=== PATIENT | female | born 1985 | race Two or more races ===

== ENCOUNTER 2017-09-11 07:31 | Emergency (ER) | payer BC ==
[~2017-09-11] VITALS: Ht 198.1 cm; Wt 74.8 kg
[2017-09-11 08:06] VITALS: BP 133/66
[2017-09-11] MEDS ORDERED: Ketorolac 30mg Inj IV ONE ×2 (08:15→09:45)
--- NOTE | 2017-09-11 08:30 | Emergency Room Report ---
History of Present Illness General Chief Complaint: Pain Source: Patient Present Illness HPI Patient presents with right facial numbness and also right arm numbness. This began on September 07. It's been intermittent. She was unable to come in at that time. Her sister who is a family practitioner felt that it might be cervical radiculopathy. She is under a lot of stress at this time with her job. She states the numbness in her face and side of her head is worse when she turns her head to the left. She also has some upper back pain that is positional - inside of her scapula. There is no weakness. She denies headache. No change in vision. The patient has a history of a skull fracture in the past. She doesn't remember having neck injury at that time. Last night she had cramps that were worse than usual. She doesn't believe she is at this time. She took 600 mg ibuprofen twice in a three-hour period in the cramps are somewhat improved today. Menstrual flow is not unusual. No dysuria, fevers, URI, sore throat, ear pain, chest pain, epigastric pain, nausea, change in stools, extremity pain. A sister had an AVM. Allergies: Coded Allergies: No Known Allergies (Unverified , 09/11/17) Patient History Past Medical History: see triage record Pertinent Family Hx Narrative AVM Social History: Denies: smoking Social History Narrative marketing Last Menstrual Period: current Now: No Reviewed Nursing Documentation: PMH: Agreed; PSxH: Agreed Review of Systems All Other Systems: negative except mentioned in HPI Physical Exam Vital Signs Date Time Temp Pulse Resp B/P (MAP) Pulse Ox O2 Delivery O2 Flow Rate FiO2 09/11/17 07:42 98.0 73 12 133/66 97 Room Air 98.1 Sp02 EP Interpretation: reviewed, normal General Appearance: well appearing, no apparent distress, GCS 15 Head: normocephalic Eyes: bilateral eye normal inspection, bilateral eye PERRL, bilateral eye EOMI ENT: moist mucus membranes Neck: full range of motion, supple, no bony tend, tender - minimal R side Respiratory: lungs clear, normal breath sounds Cardiovascular #1: regular rate, rhythm Cardiovascular #2: 2+ radial (R) Gastrointestinal: normal inspection, normal bowel sounds, non tender, no mass, non-distended Musculoskeletal: back normal, gait/station normal, normal range of motion Neurologic: oriented x3, junior web developer III-XII nml as tested, motor strength/tone normal , DTRs symmetric, cerebellar normal, normal gait, speech normal, sensory deficit - R face and subjective R hand (no extinction) Psychiatric: mood/affect normal Skin: normal inspection, warm/dry Medical Decision Making Diagnostic Impression: Primary Impression: Tingling of face Additional Impressions: Tingling in extremities Muscle spasm Stress Dysmenorrhea Spondylosis Qualified Codes: M47.22 - Other spondylosis with radiculopathy, cervical region ER Course Patient presents with right-sided facial numbness and right upper extremity numbness. Differential includes stroke, Lion's palsy, cervical radiculopathy, stress, muscle spasm amongst others. The patient needs evaluation with labs, C- spine films and CT the head. The patient will be treated with Toradol. Exam is not consistent with having a stroke at this time. CT normal. Cspine some spondylosis. Labs normal with normal ESR. UA clear and preg neg. Patient complained of more menstrual cramps and toradol was repeated with good results. Discussed most likely etiologies, treatment plan and need for follow up for repeat evaluation. No medical emergency at this time. The patient is stable for outpatient observation and treatment Laboratory Tests Test 09/11/17 08:40 White Blood Count 5.3 K/UL (4.8-10.8) Red Blood Count 4.02 M/UL (4.20-5.40) L Hemoglobin 11.5 G/DL (12.0-16.0) L Hematocrit 33.9 % (37.0-47.0) L Mean Corpuscular Volume 84 FL (80-99) Mean Corpuscular Hemoglobin 28.6 PG (27.0-31.0) Mean Corpuscular Hemoglobin Concent 34.0 G/DL (32.0-36.0) Red Cell Distribution Width 12.0 % (11.6-14.8) Platelet Count 154 K/UL (150-450) Mean Platelet Volume 8.4 FL (6.5-10.1) Neutrophils (%) (Auto) 60.2 % (45.0-75.0) Lymphocytes (%) (Auto) 24.2 % (20.0-45.0) Monocytes (%) (Auto) 12.0 % (1.0-10.0) H Eosinophils (%) (Auto) 2.3 % (0.0-3.0) Basophils (%) (Auto) 1.3 % (0.0-2.0) Erythrocyte Sedimentation Rate 3 MM/HR (0-20) Prothrombin Time 11.1 SEC (9.30-11.50) Prothrombin Time INR 1.1 (0.9-1.1) PTT 30 SEC (23-33) Urine Color Yellow Urine Appearance Clear Urine pH 6 (4.5-8.0) Urine Specific [place] 1.025 (1.005-1.035) Urine Protein 1+ (NEGATIVE) H Urine Glucose (UA) Negative (NEGATIVE) Urine Ketones Negative (NEGATIVE) Urine Occult Blood 2+ (NEGATIVE) H Urine Nitrite Negative (NEGATIVE) Urine Bilirubin Negative (NEGATIVE) Urine Urobilinogen Normal MG/DL (0.0-1.0) Urine Leukocyte Esterase Negative (NEGATIVE) Urine RBC 2-4 /HPF (0 - 2) H Urine WBC 0-2 /HPF (0 - 2) Urine Squamous Epithelial Cells Moderate /LPF (NONE/OCC) H Urine Bacteria Few /HPF (NONE) Urine HCG, Qualitative Negative (NEGATIVE) Sodium Level 141 MMOL/L (136-145) Potassium Level 4.0 MMOL/L (3.5-5.1) Chloride Level 108 MMOL/L (98-107) H Carbon Dioxide Level 23 MMOL/L (21-32) Anion Gap 10 mmol/L (5-15) Blood Urea Nitrogen 13 mg/dL (7-18) Creatinine 0.6 MG/DL (0.55-1.30) Estimate Glomerular Filtration Rate > 60 mL/min (>60) Glucose Level 97 MG/DL (74-106) Calcium Level 8.2 MG/DL (8.5-10.1) L Total Bilirubin 0.2 MG/DL (0.2-1.0) Aspartate Amino Transferase (AST) 19 U/L (15-37) Alanine Aminotransferase (ALT) 19 U/L (12-78) Alkaline Phosphatase 27 U/L (46-116) L Total Creatine Kinase 64 U/L (26-308) Troponin I 0.000 ng/mL (0.000-0.056) Total Protein 6.6 G/DL (6.4-8.2) Albumin 3.7 G/DL (3.4-5.0) Globulin 2.9 g/dL Albumin/Globulin Ratio 1.3 (1.0-2.7) EKG Diagnostic Results Rate: normal Rhythm: NSR ST Segments: no acute changes Rhythm Strip Diag. Results EP Interpretation: yes Rhythm: NSR, no PVC's, no ectopy Other X-Ray Diagnostic Results Other X-Ray Diagnostic Results : X-Ray ordered: c spine # of Views/Limited Vs Complete: 4 View Indication: Other EP Interpretation: Yes Interpretation: no dislocation, no soft tissue swelling, no fractures, other - some spondylosis Impression: Other Electronically Signed by: Maximiliano Smith MD CT/MRI/US Diagnostic Results CT/MRI/US Diagnostic Results : Imaging Test Ordered: head Impression no mass, edema, abnormalities Last Vital Signs Date Time Temp Pulse Resp B/P (MAP) Pulse Ox O2 Delivery O2 Flow Rate FiO2 09/11/17 11:36 98.1 72 12 107/56 97 Room Air 98.1 Status: improved Disposition: HOME, SELF-CARE Condition: Improved Scripts Methocarbamol* (ROBAXIN*) 500 Mg Tablet 500 MG PO TID, #10 TAB 0 Refills Prov: Maximiliano Smith M.D. 09/11/17 Ibuprofen* (MOTRIN*) 600 Mg Tablet 600 MG ORAL Q6H PRN for For Pain, #20 TAB Prov: Maximiliano Smith M.D. 09/11/17 Maximiliano Smith M.D. Sep 11, 2017 08:30
[2017-09-11 09:04] LABS: APPEARANCE,URINE CLEAR; BILIRUBIN, URINE NEGATIVE (NEGATIVE); GLUCOSE, URINE (UA) NEGATIVE (NEGATIVE); KETONES,URINE NEGATIVE (NEGATIVE); LEUKOCYTE ESTERASE ,URINE NEGATIVE (NEGATIVE); NITRITE,URINE NEGATIVE (NEGATIVE); PH,URINE 6 (4.5-8.0); PROTEIN,URINE 1+ (NEGATIVE); UROBILINOGEN,URINE NORMAL MG/DL (0.0-1.0)
[2017-09-11 09:08] LABS: BASOPHILS % (AUTO) 1.3 % (0.0-2.0); EOSINOPHILS % (AUTO) 2.3 % (0.0-3.0); HEMATOCRIT 33.9 % (37.0-47.0); HEMOGLOBIN 11.5 G/DL (12.0-16.0); LYMPHOCYTES % (AUTO) 24.2 % (20.0-45.0); MEAN CORPUSCULAR VOLUME 84 FL (80-99); NEUTROPHILS % (AUTO) 60.2 % (45.0-75.0); PLATELET COUNT 154 K/UL (150-450); RED BLOOD COUNT 4.02 M/UL (4.20-5.40); WHITE BLOOD COUNT 5.3 K/UL (4.8-10.8)
[2017-09-11 09:09] LABS: COLOR,URINE YELLOW
[2017-09-11 09:15] LABS: ANION GAP 10 mmol/L (5-15); BLOOD UREA NITROGEN 13 mg/dL (7-18); CALCIUM 8.2 MG/DL (8.5-10.1); CARBON DIOXIDE 23 MMOL/L (21-32); CHLORIDE 108 MMOL/L (98-107); CREATININE 0.6 MG/DL (0.55-1.30); SODIUM 141 MMOL/L (136-145)
[2017-09-11 09:20] LABS: ALANINE AMINOTRANSFERASE 19 U/L (12-78); ALBUMIN 3.7 G/DL (3.4-5.0); ALBUMIN/GLOBULIN RATIO 1.3 (1.0-2.7); ALKALINE PHOSPHATASE 27 U/L (46-116); ASPARTATE AMINO TRANSFERASE 19 U/L (15-37); BILIRUBIN,TOTAL 0.2 MG/DL (0.2-1.0); CREATINE KINASE 64 U/L (26-308)
[2017-09-11 09:22] LABS: INR 1.1 (0.9-1.1)
--- NOTE | 2017-09-11 09:37 | Diagnostic Imaging Report ---
Indication: Headache Technique: Contiguous 5 mm thick transaxial imaging of the head obtained in a Siem[employer] Sensation [address] scanner. Soft tissue and bone windows generated. Automatic Exposure Control was utilized. Total Dose length Product (DLP): 1361.[address] Dose Index Volume (CTDIvol): 70.38 mGy Comparison: none Findings: The size and configuration of the cortical sulci, basal cisterns, and ventricles are within normal limits for age. There is no mass effect, midline shift, or edema identified. There is no evidence of acute hemorrhage or abnormal intra-axial or extra-axial fluid collections. The bones and soft tissues are unremarkable. Impression: No mass effect, edema or acute bleed. The CT scanner at [facility] is accredited by the [employer] and the scans are performed using dose optimization techniques as appropriate to a performed exam including Automatic Exposure control.
[2017-09-11 09:59] VITALS: BP 107/56
--- NOTE | 2017-09-11 11:03 | Diagnostic Imaging Report ---
Indication: Neck Pain Findings: 3 views of the cervical spine were obtained. Mild degenerative changes of the cervical spine are demonstrated. This is characterized by vertebral endplate osteophyte formation and narrowing of intervertebral discs at C5-6 and C6-7 and C7-T1. There is no acute fracture identified. Alignment is normal. The open-mouth odontoid view shows an intact dens and good alignment of the lateral masses with respect to the body of C2. There is no soft tissue swelling. Impression: Mild spondylosis
[2017-09-11] MEDS ORDERED: IBUPROFEN600 MG ORAL (11:16)
[2017-09-11] MEDS ORDERED: ROBAXIN500 MG PO (11:16)
[2017-09-11 11:36] VITALS: BP 107/56
== END 2017-09-11 11:41 | disposition home or self-care (01) ==
LOC: EMR 08:37
DX: R20.0 Anesthesia of skin (principal); F43.9 Reaction to severe stress, unspecified; M47.22 Other spondylosis with radiculopathy, cervical region; N94.6 Dysmenorrhea, unspecified
CPT/HCPCS: 36415; 70450; 72040; 80053; 81003; 81025; 82550; 84484; 85025; 85610; 85651; 85730; 93005; 96374; 96375; 99284; J1885